=== PATIENT | female | born 1995 | race Hispanic/Latino ===

== ENCOUNTER 2024-10-18 16:38 | Emergency (ER) | payer MEDICAID, SELFPAY ==
[2024-10-18 16:47] VITALS: BP 125/73; PULSE 77; RESP 16; TEMP 36.7; O2SAT 98
[2024-10-18 17:29] VITALS: BP 110/77; PULSE 76; RESP 20; TEMP 36.7; O2SAT 98
--- NOTE | 2024-10-18 17:40 | ED_ITS ---
HPI - Recheck/Abnormal Lab/Rx General Chief Complaint: Recheck/Abnormal Lab/Rx Stated Complaint: HTN, 28 weeks Time Seen by Provider: 10/18/24 17:13 Source: patient Mode of arrival: ambulatory Limitations: language barrier (Using stratus superintendent communications) History of Present Illness HPI narrative: This is a 29-year-old female that presents to the emergency department for an elevated blood pressure reading. Reports she checked her blood pressure at home. It was high, but she does not remember what the number was. She said she googled the number and read that it was measuring high. She does not have any symptoms currently. Reports she is 28 weeks . She has had care in [place] where she used to live. She recently moved to the area and does not have an established Ob at this time. Denies pelvic cramping, vaginal bleeding. Reports she is feeling baby move. Related Data Allergies Allergy/AdvReac Type Severity Reaction Status Date / Time No Known Allergies Allergy Verified 10/18/24 17:45 Review of Systems Review of Systems: All systems reviewed & are unremarkable except as noted in HPI and below PMFSH Past Medical History Medical History (Updated 10/18/24 @ 17:47 by Sowmya Padilla PA-C) No active medical problems Exam Narrative: GENERAL: Well-appearing, well-nourished, and in no acute distress. HEAD: Normocephalic, atraumatic. EYES: EOMI. CHEST: No respiratory distress. HEART: Regular rate EXTREMITIES: Normal range of motion. No edema. SKIN: Warm, dry, no rash. NEURO: No focal deficits. Alert and oriented x3. PSYCH: Normal mood and affect Course Vital Signs Vital signs: Vital Signs Temperature 98.0 F 10/18/24 16:47 Pulse Rate 77 10/18/24 16:47 Respiratory Rate 16 10/18/24 16:47 Blood Pressure 125/73 10/18/24 16:47 Pulse Oximetry 98 10/18/24 16:47 Oxygen Delivery Room Air 10/18/24 16:47 Temperature 98.0 F 10/18/24 17:29 Pulse Rate 76 10/18/24 17:29 Respiratory Rate 18 10/18/24 17:43 Blood Pressure 110/77 10/18/24 17:29 Pulse Oximetry 98 10/18/24 17:43 Oxygen Delivery Room Air 10/18/24 17:29 MDM - Recheck/Abnormal Lab/Rx MDM Narrative Medical decision making narrative: Patient presents to the emergency department for a possible elevated blood pressure reading at home. Her blood pressure is normal here. She does not have any current symptoms. Reports she is 28 weeks , does not have an OB in the area as she recently moved. Reports she is feeling baby move. Normal heart tones. She does not have any cramping, bleeding. Will be given information for follow-up with an OB in the area. She was given warnings to return to the ER Critical Care Time Critical Care Time Critical Care Time: No Discharge Plan Discharge Clinical Impression: Blood pressure check, Patient Disposition: Home Condition: Stable Instructions: (ED) Additional Instructions: Return to the ER if you experience fever, chest pain, shortness of breath, abdominal pain with nausea and vomiting, you are unable to keep down liquids or solids, pelvic cramping, vaginal bleeding, or any other symptoms that are concerning to you Remain well hydrated. Continue your vitamin daily Follow up with OB. Call to make an appointment Patient Language: Armenian Follow-up/Referrals: Andrea De Los Santos MD [Physician, ENDOSCOPY TECHNICIAN] PHYSICIAN,CHROME TANNER [Primary Care Provider, Internal Medicine]
[2024-10-18 17:43] VITALS: RESP 18; O2SAT 98
[2024-10-18 18:12] VITALS: BP 110/77
== END 2024-10-18 18:13 | disposition home or self-care (01) ==
LOC: ANHED 18:00
PROVIDERS: Emergency Provider Physician Assistant
DX: Z03.79 Encounter for other suspected maternal and fetal conditions ruled out (principal); Z3A.28 28 weeks gestation of pregnancy
CPT/HCPCS: 99281